=== PATIENT | female | born 1960 | race Caucasian/White ===

== ENCOUNTER 2019-08-20 10:04 | Emergency (ER) | payer BC ==
--- NOTE | 2019-08-20 10:07 | ED.PDOC ---
History of Present Illness - General Time Seen by Provider: 08/20/19 10:05 Source: patient Exam Limitations: no limitations - History of Present Illness Initial Comments: 59 y/o female c/o fingertip amputation after injury in boat mechanism. No other injury Occurred: just prior to arrival Method of Injury: incised, other - boat parts Improving Factors: nothing Worsening Factors: nothing Associated Symptoms: none Allergies/Adverse Reactions: Allergies Sulfa Antibiotics Allergy (Verified 08/20/19 10:16) Home Medications: Ambulatory Orders Estrogens, Conjugated 08/20/19 Latanoprost 0.005% Ophth [Xalatan 0.005% Ophthalmic Drops] 1 drop BOTH_EYES BEDTIME 08/20/19 Ondansetron Odt [Zofran ODT] 4 mg PO Q8HR PRN #8 tab 08/20/19 Progesterone 08/20/19 Timolol Maleate (Ophth) [Timolol Maleate] 0.5 % BOTH_EYES DAILY 08/20/19 traMADol 37.5MG/APAP 325MG [Ultracet] 39.463 tab PO Q4HR PRN #20 tab 08/20/19 Review of Systems - Review of Systems Constitutional: States: no symptoms reported Musculoskeletal: States: other - fingertip avulsion Skin: States: other - fingertip avulsion Physical Exam - Physical Exam General Appearance: Anxious Neck: full range of motion, supple Hand Exam: laceration - middle finger L hand with fingertip avulsion and partial nail avulsion. Intact flexion and extension of IDP, nail injury Procedures - Laceration/Wound Repair Finger Wound Length (cm): 1 Wound Explored: clean Irrigated w/ Saline (cc's): 50 - soaked with saline and hibiclens Betadine Prep?: No Anesthesia: 0.5% Sensorcaine Volume Anesthetic (cc's): 3 Wound Debrided: minimal Layer Closure?: No - nail was removed entirely, unable to suture sight of avulsion Sterile Dressing Applied?: Yes Splint Applied?: No Departure - Departure Clinical Impression: Amputated finger Disposition: Discharge to Home or Self Care Condition: Good Departure Forms: Patient Portal Self Enrollment Instructions: DI for Finger Fracture, DI for Arm Pain Prescriptions: traMADol 37.5MG/APAP 325MG [Ultracet] 39.463 tab PO Q4HR PRN #20 tab PRN Reason: Pain Ondansetron Odt [Zofran ODT] 4 mg PO Q8HR PRN #8 tab PRN Reason: Nausea Home Medications: Ambulatory Orders Estrogens, Conjugated 08/20/19 Latanoprost 0.005% Ophth [Xalatan 0.005% Ophthalmic Drops] 1 drop BOTH_EYES BEDTIME 08/20/19 Ondansetron Odt [Zofran ODT] 4 mg PO Q8HR PRN #8 tab 08/20/19 Progesterone 08/20/19 Timolol Maleate (Ophth) [Timolol Maleate] 0.5 % BOTH_EYES DAILY 08/20/19 traMADol 37.5MG/APAP 325MG [Ultracet] 39.463 tab PO Q4HR PRN #20 tab 08/20/19 Additional Instructions: CALL Kale Hobson MD [phone] or Randy Mederos MD [phone] for further care
[2019-08-20 10:17] VITALS: TEMP 98.4; O2SAT 100
[2019-08-20] MEDS ORDERED: TETANUS,DIPHTHERIA,PERTUSSIS 1 EA SYG IM ONE (10:22)
[2019-08-20] MEDS ORDERED: NEOMYCIN-BACITRACIN-POLYMYXIN 0.9 GM UD TOP ONE (10:34)
[2019-08-20] MEDS ORDERED: traMADol HCL 50 MG TAB PO ONE (10:49)
[2019-08-20] MEDS ORDERED: ONDANSETRON ODT 8 MG TAB SL ONE (10:50)
--- NOTE | 2019-08-20 10:50 | RAD ---
EXAM: Fingers,Left CLINICAL INDICATION: Finger tip amputation COMPARISON: There is no previous study for comparison. FINDINGS: 3 views of the left middle finger reveal bone and soft tissue amputation involving the tip of the distal phalanx and associated soft tissues. The middle and proximal phalanges are intact. There is no radiopaque foreign body. IMPRESSION: Bone and soft tissue amputation of the tip of the left middle finger. Electronically signed by: Ritchie Wallace MD 08/20/2019 10:48 AM CDT
[2019-08-20] MEDS ORDERED: ACETAMINOPHEN 500 MG TAB PO ONE (10:51)
[2019-08-20 10:59] VITALS: BP 137/88
== END 2019-08-20 10:54 | disposition home or self-care (01) ==
LOC: ER 10:04
DX: S68.123A Partial traumatic metacarpophalangeal amputation of left middle finger, initial encounter (principal); Y93.19 Activity, other involving water and watercraft; Y92.9 Unspecified place or not applicable